=== PATIENT | male | born 1990 | race Caucasian/White ===

== ENCOUNTER 2019-04-03 07:36 | Emergency (ER) | payer BC ==
[2019-04-03 08:03] LABS: Absolute Lymphocytes (CBC) 1.1 K/uL (0.7-4.9); Basophils % 0.4 % (0-1.3); Hematocrit 48.4 % (39.6-49.0); Lymphocytes % 32.8 % (15.3-44.8); MPV 8.2 fL (7.6-11.3); Protime INR 0.98; RBC Red Blood Cell Count 5.22 M/uL (4.33-5.43)
--- NOTE | 2019-04-03 08:10 | RAD REPORT ---
EXAM DESCRIPTION: CT - Head Brain Wo Cont - 04/03/2019 7:58 am CLINICAL HISTORY: Alteration of awareness/confusion COMPARISON: None TECHNIQUE: Computed axial tomography of the head was obtained. IV contrast was not requested. All CT scans are performed using dose optimization technique as appropriate and may include automated exposure control or mA/KV adjustment according to patient size. FINDINGS: An intracranial bleed is not seen . The ventricles are normal in caliber. No extra-axial fluid collection is noted. . Fluid within the sinuses/ mastoids is not seen. IMPRESSION: No acute intracranial abnormality is seen. If patient's symptoms persist MRI of the bra in would be recommended.
[2019-04-03 08:19] LABS: ALT/SGPT 53 U/L (12-78); AST/SGOT 36 U/L (15-37); Albumin 3.8 g/dL (3.4-5.0); Alkaline Phosphatase 52 U/L (45-117); BUN Blood Urea Nitrogen 13 mg/dL (7-18); Bicarbonate 26 mmol/L (21-32); Bilirubin Direct 0.2 mg/dL (0-0.2); Bilirubin Total 0.7 mg/dL (0.2-1.0); Creatine Phosphokinase 353 U/L (39-308); Glucose Level 203 mg/dL (74-106); Magnesium 1.9 mg/dL (1.8-2.4); Potassium 3.8 mmol/L (3.5-5.1); Protein, Total 6.5 g/dL (6.4-8.2); Sodium Level 137 mmol/L (136-145); Troponin (Emerg Dept Use Only) < 0.02 ng/mL (0.0-0.045)
--- NOTE | 2019-04-03 09:27 | ER ---
Nurse's Notes [facility] [place] Name: Jerald Rob Age: 28 yrs Sex: Male : 1990 Arrival Date: 04/03/2019 Time: 07:37 Bed 4 Private MD: Diagnosis: Hypoglycemia, unspecified Presentation: 04/03 07:38 Presenting complaint: EMS states: NON-RESPONSIVE AND HYPOGLYCEMIC AT HOME. INITIAL BGL bp 32, THEN 167 AFTER 250ML OF D10. Transition of care: patient was not received from another setting of care. Onset of symptoms is unknown. Risk Assessment: Do you want to hurt yourself or someone else? Patient reports no desire to harm self or others. Initial Sepsis Screen: Does the patient meet any 2 criteria? Altered Mental Status. No. Patient's initial sepsis screen is negative. Does the patient have a suspected source of infection? No. Patient's initial sepsis screen is negative. Care prior to arrival: Medication(s) given: 250CC D10 IV initiated. 22 GA, in the right hand, Glucose check: 167. 07:38 Method Of Arrival: EMS: [facility] bp 07:38 Acuity: KENDRICK 2 bp Triage Assessment: 07:40 General: Appears distressed, comfortable, Behavior is anxious, inappropriate for age. bp Pain: Denies pain. EENT: No deficits noted. Neuro: Level of Consciousness is awake, obeys commands, confused, Oriented to person, place. Cardiovascular: No deficits noted. Respiratory: No deficits noted. GI: No signs and/or symptoms were reported involving the gastrointestinal system. : No signs and/or symptoms were reported regarding the genitourinary system. Derm: Skin is clammy, Skin is normal, Skin temperature is cool. Musculoskeletal: No deficits noted. Historical: - Allergies: 07:40 No Known Allergies; bp - Home Meds: 07:40 Novolin 70/30 [place] Sub-Q [Active]; bp - PMHx: 07:40 Diabetes - IDDM; bp - Immunization history:: Adult Immunizations unknown. - Coronavirus screen:: The patient has NOT traveled to [place], [place], or [place] in the past 14 days. The patient has NOT had contact with known/suspected case of Coronavirus? Proceed with normal triage procedures. - Social history:: Smoking status: Patient denies any tobacco usage or history of. - Family history:: not pertinent. - Ebola Screening: : No symptoms or risks identified at this time. - Hospitalizations: : No recent hospitalization is reported. Screenin:40 Abuse screen: Denies threats or abuse. Denies injuries from another. Nutritional bp screening: No deficits noted. Tuberculosis screening: No symptoms or risk factors identified. Fall Risk None identified. Assessment: 07:44 Reassessment: BGL 127 ON ARRIVAL. General: SEE TRIAGE NOTE. bp 07:56 Reassessment: PT TO CT. bp 09:00 Reassessment: PO CHALLENGE SUCCESSFUL. BGL INCREASED. Neuro: Level of Consciousness is bp awake, alert, obeys commands, Oriented to person, place, time, situation, Appropriate for age Speech is normal. 09:43 Reassessment: PT D/C HOME AMBULATORY WITH FAMILY, DX WITH HYPOGLYCEMIA. bp Vital Signs: 07:40 BP 136 / 80; Pulse 70; Resp 18; Temp 97; Pulse Ox 98% ; Weight 93.44 kg; bp 09:00 BP 108 / 63; Pulse 83; Resp 17; Pulse Ox 99% ; bp 09:43 BP 124 / 58; Pulse 80; Resp 17; Temp 97; Pulse Ox 99% ; bp ED Course: 07:37 Patient arrived in ED. hb 07:37 Tan Soni MD is Attending Physician. rn 07:37 Darrion Kelley, YARELIS is Primary Nurse. bp 07:39 Triage completed. bp 07:40 Arm band placed on. bp 07:40 Patient has correct armband on for positive identification. Bed in low position. Call bp light in reach. Side rails up X2. 07:40 Maintain EMS IV. Dressing intact. Good blood return noted. Site clean \T\ dry. Gauge \T\ bp site: 22G R HAND. 07:45 Inserted saline lock: 20 gauge in right antecubital area, using aseptic technique. hb Blood collected. 08:03 CT Head Brain wo Cont In Process Unspecified. EDMS 09:43 No provider procedures requiring assistance completed. IV discontinued, intact, bp bleeding controlled, No redness/swelling at site. Pressure dressing applied. Administered Medications: No medications were administered Outcome: 09:26 Discharge ordered by MD. rn 09:43 Discharged to home ambulatory, with family. bp 09:43 Condition: stable 09:43 Discharge instructions given to patient, Instructed on discharge instructions, follow up and referral plans. Demonstrated understanding of instructions, follow-up care. 09:45 Patient left the ED. bp Signatures: Dispatcher [employer] EDTan Fine MD MD rn Baxter, Heather, RN RN hb Peltier, Brian RN RN bp
--- NOTE | 2019-04-03 09:27 | EDPHYS ---
Physician Documentation [facility] Name: Jerald Rob Age: 28 yrs Sex: Male : 1990 Arrival Date: 04/03/2019 Time: 07:37 Bed 4 Private MD: ED Physician Tan Soni HPI: 04/03 07:45 This 28 yrs old Male presents to ER via EMS with complaints of low blood rn sugar, altered mental status. 07:45 The patient presents with confusion, decreased responsiveness. Onset: The rn symptoms/episode began/occurred at an unknown time. Possible causes: low blood sugar. Associated signs and symptoms: Pertinent positives: confusion, Pertinent negatives: abdominal pain, chest pain, combativeness, diarrhea, headache, palpitations, shortness of breath, weakness. Current symptoms: In the emergency department the patient's symptoms have improved. The patient has not experienced similar symptoms in the past. states slept through alarm this morning, seemed confused and was laughing, blood glucose was in 30s, given D10 by EMS with improvement of glucose but only mild improvement of mental status. No recent trauma. denies that patient uses drugs, no ETOH last night. . Historical: - Allergies: 07:40 No Known Allergies; bp - Home Meds: 07:40 Novolin 70/30 [place] Sub-Q [Active]; bp - PMHx: 07:40 Diabetes - IDDM; bp - Immunization history:: Adult Immunizations unknown. - Coronavirus screen:: The patient has NOT traveled to [place], [place], or [place] in the past 14 days. The patient has NOT had contact with known/suspected case of Coronavirus? Proceed with normal triage procedures. - Social history:: Smoking status: Patient denies any tobacco usage or history of. - Family history:: not pertinent. - Ebola Screening: : No symptoms or risks identified at this time. - Hospitalizations: : No recent hospitalization is reported. ROS: 07:45 Constitutional: Negative for fever, chills, and weight loss, Eyes: Negative for injury, rn pain, redness, and discharge, Neck: Negative for injury, pain, and swelling, Cardiovascular: Negative for chest pain, palpitations, and edema, Respiratory: Negative for shortness of breath, cough, wheezing, and pleuritic chest pain, Abdomen/GI: Negative for abdominal pain, nausea, vomiting, diarrhea, and constipation, MS/Extremity: Negative for injury and deformity, Skin: Negative for injury, rash, and discoloration, Neuro: Negative for headache, weakness, numbness, tingling Exam: 07:45 Constitutional: This is a well developed, well nourished patient who is awake, alert, rn and in no acute distress. Head/Face: Normocephalic, atraumatic. Eyes: Pupils equal round and reactive to light, extra-ocular motions intact. Lids and lashes normal. Conjunctiva and sclera are non-icteric and not injected. Cornea within normal limits. Periorbital areas with no swelling, redness, or edema. ENT: No oral trauma, MMM Neck: Trachea midline, no thyromegaly or masses palpated, and no cervical lymphadenopathy. Supple, full range of motion without nuchal rigidity, or vertebral point tenderness. No Meningismus. Cardiovascular: Regular rate and rhythm. No pulse deficits. Respiratory: No increased work of breathing, no retractions or nasal flaring. Abdomen/GI: soft, non-tender MS/ Extremity: Pulses equal, no cyanosis. Neurovascular intact. Full, normal range of motion. Equal circumference. Neuro: Awake and alert, GCS 15, oriented to person, place, and situation. Cranial nerves II-XII grossly intact. Motor strength 5/5 in all extremities. Sensory grossly intact. Cerebellar exam normal. Inappropriate laughter when answering questions and a bit slow to respond. 08:43 ECG was reviewed by the Attending Physician. rn Vital Signs: 07:40 BP 136 / 80; Pulse 70; Resp 18; Temp 97; Pulse Ox 98% ; Weight 93.44 kg; bp 09:00 BP 108 / 63; Pulse 83; Resp 17; Pulse Ox 99% ; bp 09:43 BP 124 / 58; Pulse 80; Resp 17; Temp 97; Pulse Ox 99% ; bp MDM: 07:37 Patient medically screened. rn 08:29 ED course: Pt back to baseline, have him eating banana and protein bar. Most likely rn hypoglycemic seizure, first time, has been working out more lately, no other change. Neg ct head. Will continue to monitor and anticipate dc home.. 09:25 Differential Diagnosis: electrolyte abnormality, hypoglycemia, seizure, volume rn depletion. Data reviewed: vital signs, nurses notes, radiologic studies, plain films, and as a result, I will discharge patient. Counseling: I had a detailed discussion with the patient and/or guardian regarding: the historical points, exam findings, and any diagnostic results supporting the discharge/admit diagnosis, radiology results, the need for outpatient follow up, to return to the emergency department if symptoms worsen or persist or if there are any questions or concerns that arise at home. Special discussion: Based on the patient's history, exam, and Dx evaluation, there is no indication for emergent intervention or inpatient Tx. It is understood by the patient/guardian that if the Sx's persist or worsen they need to return immediately for re-evaluation. I discussed with the patient/guardian in detail that at this point there is no indication for admission to the hospital. It is understood, however, that if the symptoms persist or worsen the patient needs to return immediately for re-evaluation. 09:26 ED course: Pt back to baseline, will dc home. Ambulatory, states now normal. Ate rn protein bar and banana, glucose now > 200, advised to eat snack at night prior to bed, and allow less strict glucose control overnight so this does not happen again. Return precautions given and understood. . 04/03 07:38 Order name: Basic Metabolic Panel; Complete Time: 08:50 rn 04/03 07:38 Order name: CBC with Diff; Complete Time: 08:23 04/03 07:38 Order name: CPK; Complete Time: 08:50 04/03 07:38 Order name: Magnesium; Complete Time: 08:50 rn 04/03 07:38 Order name: Troponin (emerg Dept Use Only); Complete Time: 08:50 04/03 07:38 Order name: Acetaminophen; Complete Time: 08:50 rn 04/03 07:38 Order name: ETOH Level; Complete Time: 08:23 rn 04/03 07:38 Order name: Hepatic Function; Complete Time: 08:50 rn 04/03 07:38 Order name: PT-INR; Complete Time: 08:23 04/03 07:38 Order name: Ptt, Activated; Complete Time: 08:23 rn 04/03 07:38 Order name: Salicylate; Complete Time: 08:23 04/03 09:11 Order name: glucometer results - FOR PT WITH NO ID bp 04/03 09:23 Order name: Glucose, Ancillary Testing; Complete Time: 09:28 EDAR 04/03 07:38 Order name: CT Head Brain wo Cont; Complete Time: 08:23 rn 04/03 07:38 Order name: EKG; Complete Time: 07:42 rn 04/03 07:38 Order name: Cardiac monitoring; Complete Time: 07:46 rn 04/03 07:38 Order name: EKG - Nurse/Tech; Complete Time: 07:46 rn 04/03 07:38 Order name: IV Saline Lock; Complete Time: 07:46 rn 04/03 07:38 Order name: Labs collected and sent; Complete Time: 07:46 rn 04/03 07:38 Order name: NPO; Complete Time: 07:46 rn 04/03 07:38 Order name: O2 Per Protocol; Complete Time: :46 rn 04/03 07:38 Order name: O2 Sat Monitoring; Complete Time: :46 rn EC:43 Rate is 71 beats/min. Rhythm is regular. QRS [place] is Normal. ND interval is normal. QRS rn interval is normal. QT interval is normal. No Q waves. T waves are Normal. No ST changes noted. Clinical impression: Normal ECG. Interpreted by me. Reviewed by me. Administered Medications: No medications were administered Disposition: 04/03/19 09:26 Discharged to Home. Impression: Hypoglycemia, unspecified. - Condition is Stable. - Discharge Instructions: Hypoglycemia, Blood Glucose Monitoring, Adult. - Medication Reconciliation Form, Thank You Letter, Antibiotic Education, Prescription Opioid Use form. - Follow up: Private Physician; When: As needed; Reason: Recheck today's complaints, Re-evaluation by your physician. - Problem is new. - Symptoms have improved. Signatures: Dispatcher [employer] [facility] Tan Soni MD MD rn Peltier, Brian RN RN bp Corrections: (The following items were deleted from the chart) 09:17 07:38 Urine Dipstick-Ancillary ordered. rn bp 09:22 07:42 URINE DRUG SCREEN+CHEM UR.LAB.BRZ ordered. [facility] 09:45 09:26 04/03/2019 09:26 Discharged to Home. Impression: Hypoglycemia, unspecified. bp Condition is Stable. Forms are Medication Reconciliation Form, Thank You Letter, Antibiotic Education, Prescription Opioid Use. Follow up: Private Physician; When: As needed; Reason: Recheck today's complaints, Re-evaluation by your physician. Problem is new. Symptoms have improved. rn
[2019-04-03 10:08] VITALS: TEMP 97
[2019-04-03 10:09] VITALS: O2SAT 99
[2019-04-03 10:10] VITALS: BP 124/58
--- NOTE | 2019-04-04 06:26 | EKG ---
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
== END 2019-04-03 09:45 | disposition home or self-care (01) ==
LOC: ER 07:36
DX: E11.649 Type 2 diabetes mellitus with hypoglycemia without coma (principal); Z79.4 Long term (current) use of insulin
CPT/HCPCS: 36415; 70450; 80048; 80076; 80320; 80329; 82550; 82947; 83735; 84484; 85025; 85610; 85730; 93005; 99284